=== PATIENT | female | born 1970 | race Caucasian/White ===

== ENCOUNTER 2019-10-07 09:57 | Emergency (ER) | payer OTHER, SELFPAY ==
[2019-10-07 09:58] VITALS: BP 132/88; PULSE 111; RESP 18; TEMP 36.6; O2SAT 98; BMI 26.6
[2019-10-07] MEDS: Clindamycin HCl 150 MG Capsule 300 MG PO (10:49)
[2019-10-07] MEDS: oxyCODONE 5 MG Tablet 10 MG PO (10:50)
[2019-10-07] MEDS: Bupivacaine Mpf 0.5% 30 ML VIAL INFILT (10:50)
--- NOTE | 2019-10-07 10:54 | ED.VIS.GEN ---
History of Present Illness Chief Complaint: Dental Informant: Patient Onset: Yesterday Narrative: Patient presents the emergency department with facial swelling and dental pain. Symptoms began yesterday. She notes symptoms are located on the left lower jaw. No fevers. History of chronic widespread dental decay. Past Medical History - Allergies and Home Meds Allergies/Adverse Reactions: Allergies Penicillins Allergy (Verified 10/07/19 10:00) Other ibuprofen [From Motrin] Adverse Reaction (Verified 10/07/19 10:00) Other Primary Care Physician: Napoleon Harris DO [Primary Care Provider] - Review of Systems General: Denies: Chills, Fever, Sweats Eyes: Denies: Visual changes - bilaterally, Diplopia ENT: Reports: - - Dental pain. Denies: Left ear pain, Right ear pain, Rhinorrhea, Sore throat Cardiovascular: Denies: Chest pain, Palpitations Respiratory: Denies: Dyspnea, Cough, Dyspnea on exertion Gastrointestinal: Denies: Abdominal pain, Nausea, Vomiting, Diarrhea, Melena, Hematochezia Genitourinary: Denies: Dysuria, Hematuria, Frequency Musculoskeletal: Denies: Back pain, Extremity Pain Skin: Denies: Rash, Wounds Neurological: Denies: Headache, Weakness, Numbness Physical Exam Vital Signs/Narrative: Vital Signs Temp Pulse Resp BP Pulse Ox 10/07/19 09:58 98 F 111 H 18 132/88 H 98 General: Well nourished, Well developed, No Acute Distress Head: Normocephalic, Atraumatic Eyes: Perrl, EOMI ENT: Moist mucous membranes, No rhinorrhea, - - Left lower mandible demonstrates swelling and erythema. There is a dental abscess seen on the remnants of the premolar teeth. There is a degree of trismus due to the swelling on the outside face. Neck: Supple, Nontender Cardiovascular: Regular rate, Regular rhythm, No murmurs Respiratory: No distress, CTA bilaterally, Chest nontender Abdomen: Soft, Nontender, Nondistended, Normal bowel sounds Back: Nontender, Normal Inspection Extremities: Nontender, No edema Skin: Normal color, No rash Neurological: Alert, Oriented x3, Cranial nerves II-XII grossly intact, Normal Strength, Normal Sensation Psychological: Normal affect, Normal Mood Diagnostic/Tx/Re-eval - Medical Decision Making Marcaine with epinephrine was used to locally anesthetize the area that was most concerning for abscess. A linear incision was made with 11 blade with expression of blood and pus. Patient continue to massage the area. Should be placed on penicillin and OxyIR. She needs to see dentistry as soon as possible. ED Disposition - Plan for ED Patient: Disposition: Home or Assisted Living Diagnosis: Dental abscess Instructions: Dental Abscess Prescriptions: Clindamycin [Cleocin] 300 mg PO 4X/DAY #80 cap Prescription Printed Oxycodone HCl/Acetaminophen [Percocet 5/325] 1 tab PO Q6H PRN PRN 3 Days #12 tab PRN Reason: Pain Prescription Printed Additional Instructions: You need to see dentistry as soon as possible.
== END 2019-10-07 11:11 | disposition home or self-care (01) ==
PROVIDERS: Emergency Provider Emergency Medicine; Family Provider Family Medicine; PCP Family Medicine
DX: K04.7 Periapical abscess without sinus (principal)
CPT/HCPCS: 41800; 64402; 99283